=== PATIENT | male | born 1980 | race Two or more races ===

== ENCOUNTER 2021-01-09 12:43 | Emergency (ER) | payer SELFPAY ==
[~2021-01-09] VITALS: Ht 172.7 cm; Wt 88.6 kg
[2021-01-09 12:46] VITALS: Ht 172.7 cm; Wt 88.6 kg
[2021-01-09 13:51] LABS: CALC OSMOLALITY 269 mosm/kg (275-300); CALCIUM 8.4 mg/dL (8.5-10.1); CARBON DIOXIDE 26.6 mmol/L (21.0-32.0); CHLORIDE - SERUM 101 mmol/L (98-107); CREATININE - SERUM 0.8 mg/dL (0.6-1.3); GLUCOSE 116 mg/dL (74-106); POTASSIUM - SERUM 3.9 mmol/L (3.5-5.1); SODIUM 135 mmol/L (136-145); UREA NITROGEN 11 mg/dL (7-18); eGFR NON AFRICAN AMERICAN > 90 mL/min (90-120)
[2021-01-09 13:52] LABS: APTT 24.8 SECONDS (22.8-39.4); INR 1.06 (0.85-1.17); PROTIME 12.8 SECONDS (11.6-15.0)
[2021-01-09 13:54] LABS: BASOPHILS 0.2 % (0-2); EOSINOPHILS 0.4 % (0-7); HEMATOCRIT 43.8 % (42.0-54.0); HEMOGLOBIN 14.9 g/dL (13.5-17.5); IMMATURE GRANULOCYTES 0.1 % (0-5); LYMPHOCYTE ABS# 2.16 10x3/uL (1.32-3.57); LYMPHOCYTES 21.5 % (15-50); MCH 30.6 pg (26.0-34.0); MCV 89.9 fL (80.0-100.0); MEAN PLATELET VOLUME 9.8 fL (7.4-10.4); MONOCYTES 4.9 % (2-11); NEUTROPHIL ABS# 7.31 10x3/uL (1.78-5.38); NEUTROPHILS 72.9 % (40-80); PLATELET COUNT 294 10x3/uL (130-400); RBC 4.87 10x6/uL (4.20-6.10); RDW 13.4 % (11.5-14.5)
[2021-01-09 13:59] LABS: ALBUMIN 3.7 g/dL (3.4-5.0); ALKALINE PHOSPHATASE 79 U/L (30-120); ALT (SGPT) 36 U/L (10-68); BILIRUBIN - TOTAL 0.73 mg/dL (0.2-1.3); PROTEIN - SERUM 7.9 g/dL (6.4-8.2)
[2021-01-09 14:00] VITALS: BP 153/102
== END 2021-01-09 14:55 | disposition other institution (70) ==
LOC: D.ER 12:43
PROVIDERS: Emergency Medicine
DX: S09.90XA Unspecified injury of head, initial encounter (principal); S02.0XXA Fracture of vault of skull, initial encounter for closed fracture; S01.01XA Laceration without foreign body of scalp, initial encounter; S62.102A Fracture of unspecified carpal bone, left wrist, initial encounter for closed fracture; S62.101A Fracture of unspecified carpal bone, right wrist, initial encounter for closed fracture; W11.XXXA Fall on and from ladder, initial encounter; Y93.9 Activity, unspecified; Y92.9 Unspecified place or not applicable